=== PATIENT | female | born 1950 | race Caucasian/White ===

== ENCOUNTER → 2016-07-16 | Outpatient (CLI) | payer BC | LOC: OD 15:45 | PROVIDERS: ATTEND Internal Medicine | DX: M25.552 Pain in left hip (principal); Z96.641 Presence of right artificial hip joint ==

== ENCOUNTER → 2017-04-29 | Outpatient (CLI) | payer MEDICARE, BC ==
--- NOTE | 2017-04-29 14:33 | WOMENS IMAGING REPORT ---
EXAM DESCRIPTION: BILAT SCREENING MAMMO W/CAD COMPLETED DATE/TIME: 04/29/2017 1:25 pm REASON FOR STUDY: SCREENING MAMMO Z12.31 ENCNTR SCREEN MAMMOGRAM FOR MALIGNANT NEOPLASM OF VANE COMPARISON: 2013 to 2014 TECHNIQUE: Standard craniocaudal and mediolateral oblique views of each breast recorded using digita l acquisition. LIMITATIONS: None. FINDINGS: No masses, calcifications or architectural distortion. No areas of suspicion. Read with the assistance of CAD. .[facility] - R2 Cenova Version 1.3 .[facility] Imaging - R2 Cenova Version 1.3 .[facility] - R2 Cenova Version 2.4 .[facility] [place] - R2 Cenova Version 2.4 .ON LICENSE OF [facility] - R2 Lens Cementer Version 9.2 IMPRESSION: NORMAL MAMMOGRAM. BIRADS 1. BREAST DENSITY: b. There are scattered areas of fibroglandular density. BIRAD: 1 NEGATIVE RECOMMENDATION: ROUTINE SCREENING COMMENT: The patient has been notified of the results by letter per MQSA requirements. Additional no tification policies are in place for contacting patient with suspicious or incomplete findings. Quality ID #225: The [employer] recommends an annual screening mammogram for women aged 40 years or over. This facility utilizes a reminder system to ensure that all patients receive reminder letters, and/or direct phone calls for appointments. This includes reminders for routine scr eening mammograms, diagnostic mammograms, or other Breast Imaging Interventions when appropriate. Th is patient will be placed in the appropriate reminder system. The [employer] (ACR) has developed recommendations for screening MRI of the breast s in certain patient populations, to be used in conjunction with mammography. Breast MRI surveillanc e may be appropriate for women with more than 20% lifetime risk of developing breast cancer as deter mined by genetic testing, significant family history of the disease, or history of mantle radiation f or Hodgkins Disease. ACR Practice Guidelines 2008. TECHNICAL DOCUMENTATION: FINDING NUMBER: (1) ASSESSMENT: (1) JOB ID: [id number] [employer]- All Rights Reserved
== END ==
LOC: WC 10:24
PROVIDERS: ATTEND Internal Medicine
DX: Z12.31 Encounter for screening mammogram for malignant neoplasm of breast (principal)
CPT/HCPCS: 77067; G0202

== ENCOUNTER → 2019-06-05 | Outpatient (CLI) | payer BC, MEDICARE ==
--- NOTE | 2019-06-05 14:27 | WOMENS IMAGING REPORT ---
EXAM DESCRIPTION: 3D SCREENING MAMMO BILAT COMPLETED DATE/TIME: 06/05/2019 11:26 am REASON FOR STUDY: Z12.31 SCREENING MAMMO Z12.31 ENCNTR SCREEN MAMMOGRAM FOR MALIGNANT NEOPLASM OF B RE COMPARISON: 2013 to 2016 EXAM PARAMETERS: Views: Standard craniocaudal and mediolateral oblique views of each breast recorded using digital acquisition and breast tomosynthesis. Read with the assistance of CAD. .[facility] - R2 Senior C Developer Version 9.2 LIMITATIONS: None. FINDINGS: No suspicious masses, suspicious calcifications or architectural distortion. No areas of c oncern. IMPRESSION: NEGATIVE MAMMOGRAM. BIRADS 1. BREAST DENSITY: b. There are scattered areas of fibroglandular density. BIRAD: ASSESSMENT: 1 NEGATIVE RECOMMENDATION: ROUTINE SCREENING COMMENT: The patient has been notified of the results by letter per MQSA requirements. Additional no tification policies are in place for contacting patient with suspicious or incomplete findings. Quality ID #225: The [employer] recommends an annual screening mammogram for women aged 40 years or over. This facility utilizes a reminder system to ensure that all patients receive reminder letters, and/or direct phone calls for appointments. This includes reminders for routine scr eening mammograms, diagnostic mammograms, or other Breast Imaging Interventions when appropriate. Th is patient will be placed in the appropriate reminder system. TECHNICAL DOCUMENTATION: FINDING NUMBER: (1) ASSESSMENT: (1) JOB ID: [id number] [employer]- All Rights Reserved Reading location - IP/workstation name: [email or web address]
== END ==
LOC: WI 11:05
PROVIDERS: ATTEND Internal Medicine
DX: Z12.31 Encounter for screening mammogram for malignant neoplasm of breast (principal)
CPT/HCPCS: 77063; 77067

== ENCOUNTER → 2019-08-16 | Outpatient (CLI) | payer MEDICARE ==
--- NOTE | 2019-08-16 14:04 | RADIOLOGY REPORT (SQ) ---
EXAM DESCRIPTION: VENOUS UNILATERAL LOWER IMAGES COMPLETED DATE/TIME: 08/16/2019 1:07 pm REASON FOR STUDY: LLE SWELLING R22.42 LOCALIZED SWELLING, MASS AND LUMP, LEFT LOWER LIMB COMPARISON: None. TECHNIQUE: Dynamic and static boogie scale and color images acquired of the left leg venous system. Se lected spectral images acquired with additional compression and augmentation maneuvers. The contralat eral common femoral vein and saphenofemoral junction were also imaged. Images stored on PACS. LIMITATIONS: None. FINDINGS: COMMON FEMORAL: Normal phasicity, compression and augmentation. No visualized echogenic ma terial on boogie scale. No defects on color images. FEMORAL: Normal compression and augmentation. No visualized echogenic material on boogie scale. No defe cts on color images. POPLITEAL: Normal compression, augmentation. No visualized echogenic material on boogie scale. No defec ts on color images. CALF VESSELS: Normal compression, augmentation. No visualized echogenic material on boogie scale. No de fects on color images. GSV and SSV: Thrombus in the small saphenous vein from the knee to the ankle. ANY DEEP VENOUS INSUFFICIENCY: Not evaluated. ANY EVIDENCE OF POPLITEAL CYST: No. OTHER: No other significant finding. CONTRALATERAL COMMON FEMORAL VEIN AND SAPHENOFEMORAL JUNCTION: Normal phasicity, compression and augmentation. No visualized echogenic material on boogie scale. No de fects on color images. IMPRESSION: Small saphenous vein thrombosis. No evidence of deep vein thrombosis. TECHNICAL DOCUMENTATION: JOB ID: [id number] 2010 [employer]- All Rights Reserved Reading location - IP/workstation name: [email or web address]
== END ==
LOC: SP 09:56
PROVIDERS: ATTEND Internal Medicine
DX: I82.812 Embolism and thrombosis of superficial veins of left lower extremity (principal)
CPT/HCPCS: 93971

== ENCOUNTER 2019-11-16 09:43 | Day surgery (SDC) | payer MEDICARE ==
[2019-11-12 12:22] LABS: APPEARANCE,URINE SLIGHTLY-CLOUDY; BILIRUBIN,URINE NEGATIVE (NEGATIVE); COLOR,URINE YELLOW; GLUCOSE, URINE NEGATIVE (NEGATIVE); KETONES,URINE NEGATIVE (NEGATIVE); LEUKOCYTE ESTERASE,URINE TRACE (NEGATIVE); NITRITE,URINE NEGATIVE (NEGATIVE); PROTEIN,URINE 30 mg/dL (NEGATIVE); UROBILINOGEN,URINE NEGATIVE mg/dL (<2.0)
[2019-11-12 12:24] LABS: HEMATOCRIT 40.9 % (36.0-47.0); HEMOGLOBIN 14.1 g/dL (12.0-15.5); MEAN CORPUSCULAR HEMOGLOBIN 31.7 pg (27.0-33.4); MEAN CORPUSCULAR HGB CONC 34.5 g/dL (32.0-36.0); MEAN CORPUSCULAR VOLUME 92 fl (80-97); PLATELET COUNT 344 10^3/uL (150-450); RED BLOOD COUNT 4.45 10^6/uL (3.72-5.28); RED CELL DISTRIBUTION WIDTH 14.3 % (11.5-14.0)
--- NOTE | 2019-11-12 12:31 | RADIOLOGY REPORT (SQ) ---
EXAM DESCRIPTION: CHEST PA/LATERAL IMAGES COMPLETED DATE/TIME: 11/12/2019 12:20 pm REASON FOR STUDY: PRE-OP COMPARISON: 02/17/2015 EXAM PARAMETERS: NUMBER OF VIEWS: two views TECHNIQUE: Digital Frontal and Lateral radiographic views of the chest acquired. RADIATION DOSE: NA LIMITATIONS: none FINDINGS: LUNGS AND PLEURA: Scarring in the apices. No consolidation or effusion. MEDIASTINUM AND HILAR STRUCTURES: No masses or contour abnormalities. HEART AND VASCULAR STRUCTURES: Heart normal size. No evidence for failure. BONES: No acute findings. HARDWARE: None in the chest. OTHER: No other significant finding. IMPRESSION: Scarring in the lung apices. No acute findings. TECHNICAL DOCUMENTATION: JOB ID: [id number] 2010 [employer]- All Rights Reserved Reading location - IP/workstation name: [email or web address]
--- NOTE | 2019-11-13 14:19 | EKG REPORT ---
SEVERITY:- OTHERWISE NORMAL ECG - SINUS BRADYCARDIA BORDERLINE LEFT AXIS DEVIATION : Confirmed by: Petar Martinez MD 13-Nov-2019 14:18:24
[~2019-11-16 09:43] MED LIST: DOXYCYCLINE HYCLATE 100 MG in DEXTROSE 5%-WATER 250 ML IV PRN; LACTATED RINGERS 1000 ML IV PRN; LIDOCAINE 0.5% INJ-PF (5 MG/ML) 50 ML SDV SUBCUT PRN; LIDOCAINE 2% INJ-PF (20 MG/ML) 2 ML AMPUL ONE
[2019-11-16] MEDS ORDERED: MIDAZOLAM 2 MG/2 ML INJ ONE (10:17)
[2019-11-16] MEDS ORDERED: FENTANYL CITRATE INJ/PF 100 MCG/2 ML AMPUL ONE (10:17)
[2019-11-16] MEDS ORDERED: KETOROLAC TROMETHAMINE 60 MG/2 ML SDV ONE (10:17)
[2019-11-16] MEDS ORDERED: ONDANSETRON HCL INJ/PF 4 MG/2 ML SDV ONE (10:17)
[2019-11-16] MEDS ORDERED: PROPOFOL INJ 200 MG/20 ML VIAL IV ONE (10:18)
[2019-11-16] MEDS ORDERED: LIDOCAINE 1%/EPINEPHRINE INJ 20 ML VIAL ONE (11:33)
[2019-11-16] MEDS ORDERED: ONDANSETRON HCL INJ/PF 4 MG/2 ML SDV IV PRN ×2 (12:13→13:13)
[2019-11-16] MEDS ORDERED: MEPERIDINE HCL/PF INJ 25 MG/1 ML DISP.SYRIN IV PRN (12:13)
[2019-11-16] MEDS ORDERED: DIPHENHYDRAMINE HCL 50 MG/ML VIAL IV PRN (12:13)
[2019-11-16] MEDS ORDERED: FENTANYL CITRATE INJ/PF 100 MCG/2 ML AMPUL IV PRN ×3 (12:13)
[2019-11-16] MEDS ORDERED: MORPHINE SULFATE 10 MG/ML INJ IV PRN (12:13)
[2019-11-16] MEDS ORDERED: OXYCODONE-ACETAMINOPHEN 5-325 MG TABLET PO PRN ×2 (13:10→13:11)
[2019-11-16] MEDS ORDERED: HYDROMORPHONE HCL INJ/PF 2 MG/ML AMPULE IV PRN (13:10)
[2019-11-16] MEDS ORDERED: IBUPROFEN 800 MG TABLET PO PRN (13:10)
[2019-11-16 14:38] VITALS: BP 121/69
--- NOTE | 2019-11-28 09:44 | Operative Report ---
Operative Report DATE OF SURGERY: 11/16/19 PREOPERATIVE DIAGNOSIS: PMB, Thickened cystic appearing endometrium of US POSTOPERATIVE DIAGNOSIS: EDISON OPERATION: Hysteroscopy, D&C, Paracervical Block, Myosure. SURGEON: ARIANA ACKERMAN ANESTHESIA: GA TISSUE REMOVED OR ALTERED: EMC, polyps COMPLICATIONS: none ESTIMATED BLOOD LOSS: less than 5ml INTRAOPERATIVE FINDINGS: very thickened endometrium with several small areas c/w polyps. PROCEDURE: Anesthesia: [candi Small MD] EBL: less than 5ml IVF: [700ml] UOP: void prior to OR Indications: [69yo with PMB on HRT and recently switched to progesterone only for bleeding. HRT discontinuation recommended. EMBx benign but US with thickened endometrium and cystic appearing areas that were not evident on the pathology from the EMBx. Risks, benefits, alternatives were reviewed and she desires to proceed with planned procedure.] Procedure: The patient was taken to the Operating Room where general anesthesia was obtained without difficulty. She was prepped and draped in the normal sterile fashion in the dorsal lithotomy position. Exam under anesthesia was performed and noted above. A speculum was placed in the vagina. The anterior cervix was grasped with a single-tooth tenaculum and the uterus sounded to 8 cm after paracervical block was performed with 8 mL of 1% lidocaine with epinephrine. Sequential dilators were then used to dilate the cervix to accommodate the Myosure hysteroscope. The hysteroscope was then gently advanced into the uterine cavity in the usual fashion with visualization of the endometrial polyps as noted above. The Myosure device was then advanced through the hysteroscope and used to easily remove the endometrial polyps noted within intrauterine cavity. The Myosure device was then removed and the hysteroscope removed. At this time gentle curettage was performed until a gritty texture was noted. All instruments were removed from the patient's cervix and vagina. Silver nitrate was applied to the tenaculum site for hemostasis. Sponge lap needle and instrument counts are correct 2. Doxycycline 100mg IV given preop. The patient tolerated the procedure well and was taken to the recovery area awake and in stable condition.
== END 2019-11-16 14:25 | disposition home or self-care (01) ==
LOC: OROUT 09:43
PROVIDERS: ATTEND Student in an Organized Health Care Education/Training Program
DX: N95.0 Postmenopausal bleeding (principal); N84.0 Polyp of corpus uteri; Z03.818 Encounter for observation for suspected exposure to other biological agents ruled out; J45.909 Unspecified asthma, uncomplicated; N32.81 Overactive bladder; Z87.891 Personal history of nicotine dependence; Z79.899 Other long term (current) drug therapy
CPT/HCPCS: 93005; 36415; 85027; 81001; 88305 ×2; 71046; 93010; 00952; 58558; U0003; J2250; J3490 ×3; J1885; J3010; J2405; J7060; J2704; C9803; 87635; 952

== ENCOUNTER 2020-05-12 09:32 | Day surgery (SDC) | payer MEDICARE, OTHER ==
[~2020-05-12 09:32] MED LIST changes: +CHONDR SU A NA/HYALUR INTRAOC KIT (SURGICARE) ONE; -DOXYCYCLINE HYCLATE 100 MG in DEXTROSE 5%-WATER 250 ML IV PRN; +EPINEPHRINE INJ/PF 1 MG/1 ML AMPULE ONE; +KETOROLAC TROMETHAMINE 0.45% 4 DROP/0.4 ML DROPERETTE OS PRN; -LACTATED RINGERS 1000 ML IV PRN; -LIDOCAINE 0.5% INJ-PF (5 MG/ML) 50 ML SDV SUBCUT PRN; +LIDOCAINE 1%/PHENYLEPHRINE 1.5% 1 ML VIAL ONE; -LIDOCAINE 2% INJ-PF (20 MG/ML) 2 ML AMPUL ONE; +MOXIFLOXACIN 1 MG/ML-BSS OPH SOLN 1 ML VIAL ONE
[2020-05-12] MEDS ORDERED: MIDAZOLAM 2 MG/2 ML INJ ONE ×2 (09:45→09:47)
[2020-05-12] MEDS ORDERED: FENTANYL CITRATE INJ/PF 100 MCG/2 ML AMPUL ONE (09:46)
[2020-05-12] MEDS: TROPICAMIDE 1% OPH SOLN 15 ML OS PRN ×3 (10:18→10:38)
[2020-05-12] MEDS: CYCLOPENTOLATE 0.2%/PHENYLEPHRINE 1% OPH SOLN 2 ML OS PRN ×3 (10:18→10:38)
[2020-05-12] MEDS: BESIFLOXACIN HCL 0.6% OPH SUSP 5 ML BOTTLE OS PRN ×4 (10:18→11:09)
[2020-05-12] MEDS: TETRACAINE HCL 0.5% OPH SOLN 4 ML OS PRN ×3 (10:19→10:51)
[2020-05-12] MEDS: PREDNISOLONE ACETATE 1% OPH SUSP 5 ML OS PRN ×2 (11:02→11:09)
[2020-05-12] MEDS: DORZOLAMIDE HCL 2%/TIMOLOL MALEAT 0.5% OPH SOLN 10 ML OS PRN ×2 (11:03→11:09)
--- NOTE | 2020-05-12 12:35 | Operative Report ---
Operative Report-[facility] Operative Report: DATE OF SURGERY: May 12, 2020 PREOPERATIVE DIAGNOSIS: NUCLEAR CATARACT, LEFT EYE. POSTOPERATIVE DIAGNOSIS: NUCLEAR CATARACT, LEFT EYE. PROCEDURE PERFORMED: PHACOEMULSIFICATION WITH POSTERIOR CHAMBER INTRAOCULAR LENS IMPLANT, LEFT EYE. SURGEON: Frederic Salinas DO MEDICATIONS AND ANESTHESIA: Versed: IV Versed Tetracaine drops: 1 to 2 drops given as needed COMPLICATION: None INDICATIONS FOR SURGERY: Medical necessity: Best corrected visual acuity worse than 20/40 secondary to cataracts with impairment of ability to carry out needs or desired activities, blurred vision, visual distortion, reduced contrast sensitivity and/or glare with association functional impairment and supporting documentation/testing, and cataracts causing symptomatic impairment of visual functions not corrected with tolerable changes in glasses or contact lenses interfering with activities of daily life. PROCEDURE: Consent: The risks, benefits and alternatives of this procedures was discussed with the patient. The patient read and signed the consent forms, was identified and was seated in the exam chair. IOL: MX 60 E 23.5 IOL Diopters: Phacoemulsification with posterior chamber intraocular lens implant: The face was prepped with 5% povidone iodine solution, and a few drops of 5% povidone iodine solution was instilled into the inferior fornix. A non-fenestrated drape was placed over the eye and the lids were parted with the speculum. A paracentesis was made with a 15 degree blade, and 1% lidocaine MPF followed by viscoelastic was injected into the anterior chamber. A 2.4 mm metal micro- keratome was used to create a temporal clear corneal incision. A circular anterior capsulorrhexis was created, followed by hydro-dissection and hydro- delineation. The phacoemulsification hand piece was inserted and the nucleus was removed with the Phaco chop technique. The irrigation-aspiration hand piece was used to remove the residual cortex, and vacuum the posterior capsule. The capsular bag was inflated and viscoelastic and the above-mentioned IOL was injected into the eye with care to insert both leaning and trailing haptics in the capsular bag. The irrigation/aspiration hand piece was reinserted to remove residual viscoelastic from the capsular bag and anterior chamber. The corneal incision was hydrated, and anterior chamber was inflated with sterile BSS via the paracentesis site, and found to be watertight. Postop medication:1 drop of prednisolone into operative by followed by 1 drop of Cosopt into operative eye followed by 1 drop of Besivance intraoperative by Other:
== END 2020-05-12 11:55 | disposition home or self-care (01) ==
LOC: SC 09:32
PROVIDERS: ATTEND Ophthalmology
DX: H25.12 Age-related nuclear cataract, left eye (principal); H34.8111 Central retinal vein occlusion, right eye, with retinal neovascularization; M19.90 Unspecified osteoarthritis, unspecified site
CPT/HCPCS: 66984; V2632; J2250; J3490 ×3; A9270; J0171; J3010; 142

== ENCOUNTER 2020-05-28 11:23 | Day surgery (SDC) | payer MEDICARE, OTHER ==
[~2020-05-28 11:23] MED LIST changes: +KETOROLAC TROMETHAMINE 0.45% 4 DROP/0.4 ML DROPERETTE OD PRN; -KETOROLAC TROMETHAMINE 0.45% 4 DROP/0.4 ML DROPERETTE OS PRN
[2020-05-28] MEDS ORDERED: MIDAZOLAM 2 MG/2 ML INJ ONE (11:48)
[2020-05-28] MEDS: TETRACAINE HCL 0.5% OPH SOLN 4 ML OD PRN ×3 (12:13→12:51)
[2020-05-28] MEDS: TROPICAMIDE 1% OPH SOLN 15 ML OD PRN ×3 (12:13→12:34)
[2020-05-28] MEDS: CYCLOPENTOLATE 0.2%/PHENYLEPHRINE 1% OPH SOLN 2 ML OD PRN ×3 (12:14→12:34)
[2020-05-28] MEDS: BESIFLOXACIN HCL 0.6% OPH SUSP 5 ML BOTTLE OD PRN ×4 (12:14→13:10)
[2020-05-28] MEDS: DORZOLAMIDE HCL 2%/TIMOLOL MALEAT 0.5% OPH SOLN 10 ML OD PRN ×2 (13:10)
[2020-05-28] MEDS: PREDNISOLONE ACETATE 1% OPH SUSP 5 ML OD PRN ×2 (13:10)
[2020-05-28] MEDS ORDERED: ACETAMINOPHEN 325 MG TABLET ONE (13:45)
--- NOTE | 2020-05-28 15:57 | Operative Report ---
Operative Report-[facility] Operative Report: DATE OF SURGERY: May 28, 2020 PREOPERATIVE DIAGNOSIS: NUCLEAR CATARACT, RIGHT EYE. POSTOPERATIVE DIAGNOSIS: NUCLEAR CATARACT, RIGHT EYE. PROCEDURE PERFORMED: PHACOEMULSIFICATION WITH POSTERIOR CHAMBER INTRAOCULAR LENS IMPLANT, RIGHT EYE. SURGEON: Frederic Salinas DO MEDICATIONS AND ANESTHESIA: Versed: IV Versed Tetracaine drops: 1 to 2 drops given as needed COMPLICATION: None INDICATIONS FOR SURGERY: Medical necessity: Best corrected visual acuity worse than 20/40 secondary to cataracts with impairment of ability to carry out needs or desired activities, blurred vision, visual distortion, reduced contrast sensitivity and/or glare with association functional impairment and supporting documentation/testing, and cataracts causing symptomatic impairment of visual functions not corrected with tolerable changes in glasses or contact lenses interfering with activities of daily life. PROCEDURE: Consent: The risks, benefits and alternatives of this procedures was discussed with the patient. The patient read and signed the consent forms, was identified and was seated in the exam chair. IOL: MX 60 E 23.0 IOL Diopters: Phacoemulsification with posterior chamber intraocular lens implant: The face was prepped with 5% povidone iodine solution, and a few drops of 5% povidone iodine solution was instilled into the inferior fornix. A non-fenestrated drape was placed over the eye and the lids were parted with the speculum. A paracentesis was made with a 15 degree blade, and 1% lidocaine MPF followed by viscoelastic was injected into the anterior chamber. A 2.4 mm metal micro- keratome was used to create a temporal clear corneal incision. A circular anterior capsulorrhexis was created, followed by hydro-dissection and hydro- delineation. The phacoemulsification hand piece was inserted and the nucleus was removed with the Phaco chop technique. The irrigation-aspiration hand piece was used to remove the residual cortex, and vacuum the posterior capsule. The capsular bag was inflated and viscoelastic and the above-mentioned IOL was injected into the eye with care to insert both leaning and trailing haptics in the capsular bag. The irrigation/aspiration hand piece was reinserted to remove residual viscoelastic from the capsular bag and anterior chamber. The corneal incision was hydrated, and anterior chamber was inflated with sterile BSS via the paracentesis site, and found to be watertight. Postop medication: 1 drop of prednisolone into operative by followed by 1 drop of Cosopt into operative eye followed by 1 drop of Besivance intraoperative by other:
== END 2020-05-28 14:03 | disposition home or self-care (01) ==
LOC: SC 11:23
PROVIDERS: ATTEND Ophthalmology
DX: H25.11 Age-related nuclear cataract, right eye (principal); Z98.42 Cataract extraction status, left eye; M19.90 Unspecified osteoarthritis, unspecified site
CPT/HCPCS: 66984; A9270 ×2; J2250; J3490 ×3; J0171; V2632